=== PATIENT | male | born 1985 | race Two or more races ===

== ENCOUNTER 2016-09-11 15:27 | Emergency (ER) | payer OTHER ==
[~2016-09-11] VITALS: Ht 167.6 cm; Wt 55.0 kg
[2016-09-11 15:57] VITALS: BP 124/83
== END 2016-09-11 20:10 | disposition home or self-care (01) ==
LOC: ER 15:56
DX: M25.561 Pain in right knee (principal)
CPT/HCPCS: 73562; 99284